=== PATIENT | male | born 1970 | race Caucasian/White ===

== ENCOUNTER → 2019-03-22 | Outpatient (REF) | payer OTHER ==
[2019-03-22 13:03] LABS: BACTERIA, URINE AUTO NEGATIVE (NEGATIVE); MUCUS, URINE SMALL (NEGATIVE); RBC, URINE AUTO 6 /HPF (0-3); SQUAMOUS EPITHELIAL CELL UR AU 0 /HPF (0-6); WBC, URINE AUTO 1 /HPF (0-3)
== END ==
LOC: M LAB REF 11:53
PROVIDERS: ATTEND Nurse Practitioner Family
DX: R31.9 Hematuria, unspecified (principal)

== ENCOUNTER → 2019-03-29 | Outpatient (REF) | payer OTHER ==
[2019-03-29 13:43] LABS: APPEARANCE, URINE CLEAR (CLEAR); BACTERIA, URINE AUTO NEGATIVE (NEGATIVE); BILIRUBIN, URINE AUTO NEGATIVE (NEGATIVE); BLOOD, URINE BLOOD NEGATIVE (NEGATIVE); COLOR, URINE YELLOW (YELLOW); GLUCOSE, URINE (UA) AUTO NEGATIVE (NEGATIVE); KETONE, URINE AUTO NEGATIVE (NEGATIVE); LEUKOCYTE ESTERASE, URINE AUTO NEGATIVE (NEGATIVE); NITRITE, URINE AUTO NEGATIVE (NEGATIVE); PROTEIN, URINE AUTO NEGATIVE (NEGATIVE); RBC, URINE AUTO 0 /HPF (0-3); SPECIFIC GRAVITY URINE AUTO 1.016 (1.002-1.035); SQUAMOUS EPITHELIAL CELL UR AU 0 /HPF (0-6); UROBILINOGEN, URINE AUTO 0.2 mg/dL (0.0-2.0); WBC, URINE AUTO 0 /HPF (0-3)
== END ==
LOC: M SMT 13:13
PROVIDERS: ATTEND Nurse Practitioner Family
DX: R31.0 Gross hematuria (principal)

== ENCOUNTER → 2019-04-06 | Outpatient (CLI) | payer OTHER ==
[~2019-04-06] MED LIST: ISOVUE-370 76% 100ML VIAL (Q9967) As Ordered ONE
--- NOTE | 2019-04-06 16:18 | REP ---
Clinical: Gross hematuria. Technique: Axial precontrast, conscious enhanced, and delayed images of the abdomen and pelvis using 100 ml Isovue 370 intravenous contrast material with coronal and sagittal re-formations. Volume rendered 3-D CT urogram obtained. Comparison: 07/19/2015. Findings: Left kidney includes 1.7 cm upper pole simple cyst and 2 mm nonobstructing calculus. No perinephric stranding, hydroureteronephrosis, or renal mass identified. Right kidney demonstrates a partially exophytic bilobed simple appearing cyst extending along the posterior aspect of the kidney and measuring 4.4 cm maximal diameter with thin septation. Few nonobstructing intrarenal calculi are identified measuring up to 3 mm. No perinephric stranding, hydroureteronephrosis or renal mass lesion identified. Liver, spleen, pancreas, and bilateral adrenal glands are normal. Evidence of prior cholecystectomy. The enteric system is without obstruction or acute inflammatory process. Normal terminal ileum and appendix are identified in the right lower quadrant. Pelvis demonstrates normal bladder and age appropriate prostate/seminal vesicles. No ascites. No free air. No adenopathy. Abdominal aorta without aneurysm or dissection. Musculoskeletal structures are intact. Impression: 1. Renal findings including benign appearing cysts and nonobstructing nephroliths as described above. No further urinary tract pathology appreciated. Electronically Signed by Willie Fritz MD 04/06/2019 04:09 P
== END ==
LOC: M RAD 15:01
PROVIDERS: ATTEND Nurse Practitioner Family
DX: R31.0 Gross hematuria (principal); N28.1 Cyst of kidney, acquired; N20.0 Calculus of kidney
CPT/HCPCS: 74178; Q9967

== ENCOUNTER → 2019-11-02 | Outpatient (CLI) | payer OTHER ==
--- NOTE | 2019-11-17 17:50 | REP ---
LEFT FOOT SERIES CLINICAL: Left foot pain. TECHNIQUE: AP, lateral, and bilateral oblique views of the left foot. FINDINGS: Generalized age-related changes are appreciated. No acute fracture or dislocation. No significant focal arthritic changes. Surrounding soft tissues are unremarkable. Calcaneus appears intact and normal. IMPRESSION: Age appropriate left foot radiographs. [facility]
== END ==
LOC: M WUC 14:32
PROVIDERS: ATTEND Physician Assistant Medical
DX: M79.672 Pain in left foot (principal)

== ENCOUNTER → 2020-10-02 | Outpatient (CLI) | payer OTHER ==
--- NOTE | 2020-10-02 23:38 | REP ---
INDICATION: KIDNEY STONE COMPARISON: 04/06/2019 TECHNIQUE: Axial noncontrast images from the lung bases to the pubic symphysis with coronal and sagittal reformations. This CT examination was performed using the following dose reduction techniques: Automated exposure control, adjustment of mA and/or kv according to the patient's size, and use of iterative reconstruction technique. FINDINGS: Lung bases are clear. Visualized heart and pericardium normal. Liver, spleen, pancreas, and bilateral adrenal glands are normal. Kidneys demonstrate stable cystic changes including bilobed cyst in the right kidney measuring roughly 4.9 cm maximal diameter and 2.6 cm cyst in the left kidney. Approximately two 2 mm nonobstructing right renal calculi are identified along with 1-2 mm nonobstructing left renal calculi. The enteric system is unremarkable and without obstruction or acute inflammatory process. Normal terminal ileum and appendix identified in the right lower quadrant. Pelvis demonstrates normal bladder and age-appropriate prostate/seminal vesicles. No ascites. No free air. No adenopathy. No focal inflammatory stranding. Abdominal aorta without aneurysm. Musculoskeletal structures are intact and without acute osseous abnormality. IMPRESSION: No acute abdominopelvic pathology appreciated. Stable bilateral simple renal cysts and few small nonobstructing renal calculi. <Electronically signed by Willie Fritz > 10/02/20 [id number]
== END ==
LOC: M PLAIMG 10:05
PROVIDERS: ATTEND Nurse Practitioner Women's Health
DX: N20.0 Calculus of kidney (principal); N28.1 Cyst of kidney, acquired

== ENCOUNTER → 2024-06-08 | Outpatient (CLI) | payer OTHER | LOC: M WUC 15:11 | PROVIDERS: ATTEND Physician Assistant Medical | DX: M79.672 Pain in left foot (principal) ==

== ENCOUNTER 2024-08-29 11:42 | Day surgery (SDC) | payer OTHER ==
[~2024-08-29] VITALS: Ht 185.4 cm; Wt 138.3 kg
[~2024-08-29 11:42] MED LIST changes: +AMLO1TAB24 PO; -ISOVUE-370 76% 100ML VIAL (Q9967) As Ordered ONE; +VALS160T2 PO
[2024-08-29] MEDS ORDERED: LIDOCAINE 2% 100 MG/5 ML SDV (FOR ANES.) As Ordered ONE (14:19)
[2024-08-29 15:36] VITALS: TEMP 97.4
[2024-08-29 15:58] VITALS: BP 127/76; O2SAT 96
== END 2024-08-29 16:02 | disposition home or self-care (01) ==
LOC: M OPP 11:42
PROVIDERS: ATTEND Internal Medicine Gastroenterology
DX: Z12.11 Encounter for screening for malignant neoplasm of colon (principal); K52.9 Noninfective gastroenteritis and colitis, unspecified; K63.3 Ulcer of intestine; K64.0 First degree hemorrhoids; Z79.899 Other long term (current) drug therapy

== ENCOUNTER → 2024-09-06 | Outpatient (REF) | payer OTHER | LOC: M LAB REF 17:16 | PROVIDERS: ATTEND Physician Assistant Medical | DX: K63.3 Ulcer of intestine (principal) ==

== ENCOUNTER → 2024-09-08 | Outpatient (REF) | payer OTHER | LOC: M LAB REF 11:40 | PROVIDERS: ATTEND Physician Assistant Medical | DX: K63.3 Ulcer of intestine (principal) ==